=== PATIENT | male | born 1955 | race Caucasian/White ===

== ENCOUNTER → 2018-12-08 | Outpatient (CLI) | payer OTHER | LOC: HYPER 11-24 13:31 | DX: L30.9 Dermatitis, unspecified (principal); I87.2 Venous insufficiency (chronic) (peripheral); I73.9 Peripheral vascular disease, unspecified; I10 Essential (primary) hypertension; R60.0 Localized edema; N18.9 Chronic kidney disease, unspecified; M19.90 Unspecified osteoarthritis, unspecified site; M10.9 Gout, unspecified ==

== ENCOUNTER → 2018-12-29 | Outpatient (CLI) | payer OTHER | LOC: HYPER 06:41 | DX: L30.9 Dermatitis, unspecified (principal); I87.2 Venous insufficiency (chronic) (peripheral); I10 Essential (primary) hypertension; I73.9 Peripheral vascular disease, unspecified; N18.9 Chronic kidney disease, unspecified; M19.90 Unspecified osteoarthritis, unspecified site; M10.9 Gout, unspecified; R60.0 Localized edema ==

== ENCOUNTER → 2019-01-12 | Outpatient (CLI) | payer OTHER | LOC: HYPER 07:07 | DX: L30.9 Dermatitis, unspecified (principal); R21 Rash and other nonspecific skin eruption; I87.2 Venous insufficiency (chronic) (peripheral); I12.9 Hypertensive chronic kidney disease with stage 1 through stage 4 chronic kidney disease, or unspecified chronic kidney disease; N18.9 Chronic kidney disease, unspecified; I73.9 Peripheral vascular disease, unspecified; I25.10 Atherosclerotic heart disease of native coronary artery without angina pectoris; E66.3 Overweight; M19.90 Unspecified osteoarthritis, unspecified site; M10.9 Gout, unspecified; R60.0 Localized edema; Z68.41 Body mass index [BMI] 40.0-44.9, adult ==

== ENCOUNTER → 2019-01-26 | Outpatient (CLI) | payer OTHER | LOC: HYPER 07:16 | DX: L30.9 Dermatitis, unspecified (principal); I87.2 Venous insufficiency (chronic) (peripheral); I10 Essential (primary) hypertension; I25.10 Atherosclerotic heart disease of native coronary artery without angina pectoris; I73.9 Peripheral vascular disease, unspecified; N18.9 Chronic kidney disease, unspecified; M19.90 Unspecified osteoarthritis, unspecified site; M10.9 Gout, unspecified; R60.0 Localized edema ==